=== PATIENT | female | born 1955 | race American Indian/Alaskan Native ===

== ENCOUNTER 2019-11-09 11:58 | Observation (INO) | payer OTHER, MEDICARE, SELFPAY ==
[2019-11-09] VITALS (15 sets, daily range): BP systolic 92–133; BP diastolic 45–78; PULSE 73–110; RESP 14–23; TEMP 36.4–37.7; O2SAT 95–100; BMI 23.2
[2019-11-09 12:32] LABS: RBC Urine None Seen (0-5/HPF)
[2019-11-09] MEDS: PANTOPRAZOLE 40 MG VIAL IV ×2 (12:41→20:27)
[2019-11-09 12:49] LABS: Amorphous Sediment Urine 1+; Bacteria Urine Moderate (10-30); Culture Indicated Urine Specimen Cultured; Mucus Urine 1+ (Negative); Squamous Epithelial Cell Urine 1-5 /HPF (0-5/HPF); WBC Urine 5-10/HPF (0-5/HPF)
[2019-11-09 13:00] LABS: Add Manual Diff / Slide Review NO; Basophils Absolute Auto 100 /uL (0-100); Basophils Percent Auto 0.9 % (0-2); Eosinophils Absolute Auto 0 /uL (0-450); Eosinophils Percent Auto 0.9 % (2-4); Hematocrit 28.5 % (36-46); Hemoglobin 9.9 g/dL (12.0-16.0); Lymphocytes Absolute Auto 1800 /uL (1100-4500); Lymphocytes Percent Auto 32.5 % (25-40); Mean Corpuscular HGB Conc 34.9 % (30-36); Mean Corpuscular Hemoglobin 29.8 PG (26-34); Mean Corpuscular Volume 85.3 fL (80-100); Monocytes Absolute Auto 400 /uL (0-900); Monocytes Percent Auto 6.8 % (3-14); Neutrophils Absolute Auto 3200 /uL (1500-7000); Neutrophils Percent Auto 58.9 % (50-75); Platelet Count 254 X10^3/uL (150-400); Red Blood Cell Count 3.34 X10^6/uL (4.0-5.2); Red Cell Distribution Width 12.9 % (11.6-14.8); White Blood Cell Count 5.4 X10^3/uL (4.5-11.0)
[2019-11-09 13:01] LABS: Prothrombin Time 11.1 SECONDS (10.1-12.7)
[2019-11-09 13:03] LABS: PTT Partial Thromboplastin Tim 33 SECONDS (26.4-36.2)
[2019-11-09 13:08] LABS: Alanine Aminotransferase 23 IU/L (<35); Albumin Globulin Ratio 1.3 (1.0-2.8); Alkaline Phosphatase 62 U/L (38-126); Aspartate Aminotransferase 28 IU/L (14-36); BUN Creatinine Ratio 17.5 (6-22); Bilirubin Total 0.8 mg/dL (0.2-1.3); Blood Urea Nitrogen 14 mg/dL (7-17); Calcium 8.3 mg/dL (8.4-10.2); Carbon Dioxide 23 mmol/L (22-32); Chloride 110 mmol/L (98-107); Estimated Glomerular Filt Rate > 60.0 mL/min (>60); Globulin 3.1 g/dL (1.7-4.1); Glucose 99 mg/dL (80-110); HEMOLYSIS < 15 (0-50); Lactate (Lactic Acid) 0.9 mmol/L (0.7-2.1); Potassium 3.8 mmol/L (3.4-5.1); Sodium 141 mmol/L (137-145); Total Protein 7.1 g/dL (6.3-8.2)
--- NOTE | 2019-11-09 13:08 | ED.GIBLEED ---
HPI - GI Bleed General Chief complaint: GI Bleed Stated complaint: Blood in stool Time Seen by Provider: 11/09/19 12:05 Source: patient Mode of arrival: Ambulatory Limitations: no limitations History of Present Illness HPI Narrative: Patient is a 64 year old female sent from walk-in clinic for of black tarry stools and concern for GI bleed. She has says that for the last 3 days she has had at least 2 or 3 episodes a day. She had initially 1 or 2 episodes of vomiting black tolerate stuff. She has never had GI bleeding before. She feels little weak but denies any dizziness lightheadedness or abdominal pain. Related Data Home Medications Medication Instructions Recorded Confirmed aspirin 81 mg PO DAILY 11/09/19 11/09/19 Allergies Allergy/AdvReac Type Severity Reaction Status Date / Time codeine Allergy Intermediate Palpitation Verified 11/09/19 12:10 s Sulfa (Sulfonamide Allergy Intermediate Blister Verified 11/09/19 12:10 Antibiotics) Review of Systems Review of Systems ROS Unobtainable: All systems reviewed & are unremarkable except as noted in HPI and below Constitutional Constitutional: Denies chills, Denies fever(s), Denies lethargy and Reports weakness Eyes Eyes: Denies change in vision, Denies eye discharge, Denies irritation and Denies loss of vision ENT Ears, Nose, Mouth, and Throat: Denies change in voice, Denies neck pain and Denies sore throat Cardiovascular Cardiovascular: Denies chest pain, Denies irregular heart rhythm, Denies lightheadedness, Denies palpitations, Denies dyspnea, Denies dyspnea on exertion and Denies orthopnea Respiratory Respiratory: Denies cough, Denies dyspnea, Denies dyspnea on exertion and Denies wheezing Gastrointestinal Gastrointestinal: Reports as per HPI, Denies abdominal pain and Reports change in bowel habits Genitourinary Genitourinary: Denies hematuria, Denies flank pain, Denies urinary incontinence and Denies urinary urgency Musculoskeletal Musculoskeletal: Denies neck pain Integumentary/Breasts Skin/Breast: Denies pruritus, Denies erythema, Denies rash and Denies wounds Neurologic Neurologic: Denies loss of vision and Reports weakness Endocrine Endocrine: Denies palpitations Allergic/Immunologic Allergic/Immunologic: Denies wheezing Patient History Medical History Patient denies medical problems (Acute) Social History Smoking Status: Former smoker Smoking Status: Former smoker alcohol intake frequency: 0-2 drinks per day Substance Use Type: does not use Exam Initial Vital Signs Initial Vital Signs: Vital Signs Temperature 97.5 F L 11/09/19 12:05 Pulse Rate 85 11/09/19 12:05 Respiratory Rate 14 11/09/19 12:05 Blood Pressure 115/54 L 11/09/19 12:05 Pulse Oximetry 98 11/09/19 12:05 GENERAL: An alert well-appearing female HEENT: Head atraumatic,EOMI, pupils reactive CARDIOVASCULAR: Regular rate and rhythm without murmurs, rubs or gallops. RESPIRATORY: Breath sounds equal bilaterally, no wheezes rales or rhonchi. ABDOMEN: Soft, nontender. Normoactive bowel sounds all 4 quadrants. No guarding or rebound. RECTAL: Hemoccult-positive, no hemorrhoids, nontender EXTREMITIES: Normal range of motion, no clubbing or edema. Neurovascularly intact NEUROLOGICAL: Alert and oriented x4.Normal gait and speech. Cranial nerves II through XII grossly intact. SKIN: Warm, dry, no laceration, no petechiae, no rashes or lesions. Course Orders Ordered: ED Orders 11/09/19 12:14 Urine Culture Stat Urine Microscopic Stat 11/09/19 12:47 Complete Blood Count AUTO DIFF Stat Comprehensive Metabolic Panel Stat Lactate (Lactic Acid) Stat Partial Thromboplastin Time Stat Prothrombin Time INR Stat Sodium Chloride (Normal Saline 0.9%) 1,000 mls @ 1,000 mls/hr IV BOLUS ONE Stop: 11/09/19 14:27 Discontinued Medications Pantoprazole Sodium (Protonix) 40 mg IV NOW ONE Stop: 11/09/19 12:26 Last Admin: 11/09/19 12:41 Dose: 40 mg Documented by: ALMA DELIA Consultations Consultation #1: Dr. Arnold updated patient's symptoms test results he request admit to medicine and will likely do his EGD colonoscopy today. Keep NPO. IN ED to see and evaluate patient Time: 13:28 Consultation #2: Dr. Torrez accepts for observation Time: 13:54 Vital Signs Vital signs: Vital Signs - 8 hr 11/09/19 12:05 11/09/19 13:08 Temperature 97.5 F L Pulse Rate 85 82 Respiratory Rate 14 16 Blood Pressure 115/54 L Blood Pressure [Right Arm] 92/60 Pulse Oximetry 98 100 MDM - GI Bleed Lab Data Attestation: I reviewed the patient's lab results. Result diagrams: 11/09/19 12:47 11/09/19 12:47 Labs: Lab Results 11/09/19 11/09/19 11/09/19 Range/Units 12:14 12:47 12:47 WBC 5.4 (4.5-11.0) X10^3/uL RBC 3.34 L (4.0-5.2) X10^6/uL Hgb 9.9 L (12.0-16.0) g/dL Hct 28.5 L (36-46) % MCV 85.3 (80-100) fL MCH 29.8 (26-34) PG MCHC 34.9 (30-36) % RDW 12.9 (11.6-14.8) % Plt Count 254 (150-400) X10^3/uL Neut % (Auto) 58.9 (50-75) % Lymph % (Auto) 32.5 (25-40) % [place] % (Auto) 6.8 (3-14) % Eos % (Auto) 0.9 L (2-4) % Baso % (Auto) 0.9 (0-2) % Neut # (Auto) 3200 (5523-2826) /uL Lymph # (Auto) 1800 (7716-4312) /uL [place] # (Auto) 400 (0-900) /uL Eos # (Auto) 0 (0-450) /uL Baso # (Auto) 100 (0-100) /uL PT 11.1 (10.1-12.7) SECONDS INR 1.0 (0.9-1.3) APTT 33 (26.4-36.2) SECONDS Sodium (137-145) mmol/L Potassium (3.4-5.1) mmol/L Chloride (98-107) mmol/L Carbon Dioxide (22-32) mmol/L BUN (7-17) mg/dL Creatinine (0.52-1.04) mg/dL Estimated GFR (>60) mL/min BUN/Creatinine Ratio (6-22) Glucose (80-110) mg/dL Lactate (0.7-2.1) mmol/L Calcium (8.4-10.2) mg/dL Total Bilirubin (0.2-1.3) mg/dL AST (14-36) IU/L ALT (<35) IU/L Alkaline Phosphatase (38-126) U/L Total Protein (6.3-8.2) g/dL Albumin (3.5-5.0) g/dL Globulin (1.7-4.1) g/dL Albumin/Globulin Ratio (1.0-2.8) Urine RBC None seen (0-5/HPF) Urine WBC 5-10/hpf H (0-5/HPF) Ur Squamous Epith Cells 1-5 /hpf (0-5/HPF) Amorphous Sediment 1+ Urine Bacteria Moderate (10-30) H (None) Urine Mucus 1+ H (Negative) Ur Culture Indicated? Specimen cultured 11/09/19 11/09/19 Range/Units 12:47 12:47 WBC (4.5-11.0) X10^3/uL RBC (4.0-5.2) X10^6/uL Hgb (12.0-16.0) g/dL Hct (36-46) % MCV (80-100) fL MCH (26-34) PG MCHC (30-36) % RDW (11.6-14.8) % Plt Count (150-400) X10^3/uL Neut % (Auto) (50-75) % Lymph % (Auto) (25-40) % [place] % (Auto) (3-14) % Eos % (Auto) (2-4) % Baso % (Auto) (0-2) % Neut # (Auto) (8209-1403) /uL Lymph # (Auto) (2555-7471) /uL [place] # (Auto) (0-900) /uL Eos # (Auto) (0-450) /uL Baso # (Auto) (0-100) /uL PT (10.1-12.7) SECONDS INR (0.9-1.3) APTT (26.4-36.2) SECONDS Sodium 141 (137-145) mmol/L Potassium 3.8 (3.4-5.1) mmol/L Chloride 110 H (98-107) mmol/L Carbon Dioxide 23 (22-32) mmol/L BUN 14 (7-17) mg/dL Creatinine 0.80 (0.52-1.04) mg/dL Estimated GFR > 60.0 (>60) mL/min BUN/Creatinine Ratio 17.5 (6-22) Glucose 99 (80-110) mg/dL Lactate 0.9 (0.7-2.1) mmol/L Calcium 8.3 L (8.4-10.2) mg/dL Total Bilirubin 0.8 (0.2-1.3) mg/dL AST 28 (14-36) IU/L ALT 23 (<35) IU/L Alkaline Phosphatase 62 (38-126) U/L Total Protein 7.1 (6.3-8.2) g/dL Albumin 4.0 (3.5-5.0) g/dL Globulin 3.1 (1.7-4.1) g/dL Albumin/Globulin Ratio 1.3 (1.0-2.8) Urine RBC (0-5/HPF) Urine WBC (0-5/HPF) Ur Squamous Epith Cells (0-5/HPF) Amorphous Sediment Urine Bacteria (None) Urine Mucus (Negative) Ur Culture Indicated? Urine Dip Bedside Urine Glucose Negative Bedside Urine Bilirubin - Negative Bedside Urine Ketone - Negative Urine Specific [place] 1.020 Bedside Urine Occult Blood - Negative Bedside Urine pH 6.0 Bedside Urine Protein - Negative Bedside Urine Urobilinogen - Negative Bedside Urine Nitrite - Negative Bedside Urine Leukocytes + 70 Esterase MDM Narrative Medical decision making narrative: Patient is slightly anemic hemoglobin of 9.9 unclear what her baseline is. There was no stool on rectal exam although history suggests GI bleeding. Initial blood pressure 115/54 which 92/60. She has had no further episodes of acute bleeding in the emergency department. sHe is given Protonix and 1 L of IV fluid. Will be admitted for observation for further evaluation. Discharge Plan Departure Patient Disposition: Admitted as Observation Clinical Impression: Acute GI bleeding
[2019-11-09] MEDS: SODIUM CHLORIDE 0.9% 1,000 ML 1000 ML IV (14:20)
--- NOTE | 2019-11-09 14:31 | P.CONS_ITS ---
History of Present Illness Consult details Date Patient Seen: 11/09/19 Time Patient Seen: 14:00 Chief complaint: Blood in stool Reason for consult: Upper GI bleed Requesting provider: Adriana Cardoso Narrative: The patient is a woman with a 3 day history of black bowel movements and vomiting black material. She has never had this before. She has absolutely no abdominal pain. She has not been me in taking anything like Pepto-Bismol. She is not on any blood thinners normally. She does take aspirin 81 mg a day. It is not heavily use alcohol. Meds Home Medications and Allergies Home Medications Medication Instructions Recorded Confirmed Type aspirin 81 mg PO DAILY 11/09/19 11/09/19 History Allergies Allergy/AdvReac Type Severity Reaction Status Date / Time codeine Allergy Intermediate Palpitation Verified 11/09/19 12:10 s Sulfa (Sulfonamide Allergy Intermediate Blister Verified 11/09/19 12:10 Antibiotics) Review of Systems Review of Systems Narrative: Patient denies visual difficulties double vision no cough cold or asthma no tooth aches trouble swallowing no chest pain or heart problems no abdominal pain nausea last colonoscopy perhaps 5 years ago. No seizures or blackouts. No problems with kidney stones. No anxiety or depression. Exam Vital Signs (past 8 hours): - 11/09/19 12:05 11/09/19 13:08 Temperature 97.5 F L Pulse Rate 85 82 Respiratory Rate 14 16 Blood Pressure 115/54 L Blood Pressure [Right Arm] 92/60 Pulse Oximetry 98 100 Oxygen Delivery Method Room Air Narrative Exam Narrative: Thin cooperative woman in no apparent distress. Her eyes are nonicteric. Pupils equal round reactive to light. Oral mucosa is dry no open lesions. Neck is supple there are no nodes in the neck or supraclavicular areas. Trachea is midline mobile. Thyroid is not enlarged. Lungs are clear to auscultation without rales or rhonchi. Heart regular rate and rhythm without murmur gallop. Lungs percuss equally bilaterally. No bruit in the neck. Abdomen is scaphoid soft nontender without mass. No hernias appreciated. Subcostal scar in the right noted. The patient is alert oriented x3. Speech rate and content are appropriate. Objective Labs Result Diagrams: 11/09/19 12:47 11/09/19 12:47 Labs: Laboratory Results - last 24 hr 11/09/19 11/09/1911/09/20 12:14 12:47 12:47 WBC 5.4 RBC 3.34 L Hgb 9.9 L Hct 28.5 L MCV 85.3 MCH 29.8 MCHC 34.9 RDW 12.9 Plt Count 254 Neut % (Auto) 58.9 Lymph % (Auto) 32.5 [place] % (Auto) 6.8 Eos % (Auto) 0.9 L Baso % (Auto) 0.9 Neut # (Auto) 3200 Lymph # (Auto) 1800 [place] # (Auto) 400 Eos # (Auto) 0 Baso # (Auto) 100 PT 11.1 INR 1.0 APTT 33 Sodium Potassium Chloride Carbon Dioxide BUN Creatinine Estimated GFR BUN/Creatinine Ratio Glucose Lactate Calcium Total Bilirubin AST ALT Alkaline Phosphatase Total Protein Albumin Globulin Albumin/Globulin Ratio Urine RBC None seen Urine WBC 5-10/hpf H Ur Squamous Epith Cells 1-5 /hpf Amorphous Sediment 1+ Urine Bacteria Moderate (10-30) H Urine Mucus 1+ H Ur Culture Indicated? Specimen cultured 11/09/19 11/09/19 12:47 12:47 WBC RBC Hgb Hct MCV MCH MCHC RDW Plt Count Neut % (Auto) Lymph % (Auto) [place] % (Auto) Eos % (Auto) Baso % (Auto) Neut # (Auto) Lymph # (Auto) [place] # (Auto) Eos # (Auto) Baso # (Auto) PT INR APTT Sodium 141 Potassium 3.8 Chloride 110 H Carbon Dioxide 23 BUN 14 Creatinine 0.80 Estimated GFR > 60.0 BUN/Creatinine Ratio 17.5 Glucose 99 Lactate 0.9 Calcium 8.3 L Total Bilirubin 0.8 AST 28 ALT 23 Alkaline Phosphatase 62 Total Protein 7.1 Albumin 4.0 Globulin 3.1 Albumin/Globulin Ratio 1.3 Urine RBC Urine WBC Ur Squamous Epith Cells Amorphous Sediment Urine Bacteria Urine Mucus Ur Culture Indicated? Assessment & Plan Assessment and plan (1) Acute GI bleeding: Current visit: Yes Status: Acute Assessment & Plan narrative: Patient with an upper GI bleed. Anemic with hematocrit of upper 20s. Recommend EGD. She has not had anything to eat or drink today. I've discussed the procedure including risks of bleeding perforation the potential to inject medication apply clips etc. She appears to understand wishes to proceed. Will treat with proton pump inhibitor which is already being given in the ER.
--- NOTE | 2019-11-09 16:37 | PM.PREOP ---
Pre-operative Note Interval Note History & Physical reviewed/Exam performed by Physician: Yes Changes to H&P: No
[2019-11-09] MEDS: SODIUM CHLORIDE 0.9% 1,000 ML 42 ML IV (16:38)
--- NOTE | 2019-11-09 17:01 | PM.OP.ENDO ---
Operative Date/Time/Diagnoses Date of procedure: 11/09/19 Time of procedure: 17:01 Pre-op diagnosis: Upper GI bleed Post-op diagnosis: same (Immediate pre pyloric channel ulcer) Procedure & Clinicians Study performed: EGD Same procedure as scheduled: Yes Indications: Determine cause of it upper GI bleed Surgeon: Anton Arnold Procedure Notes SCOAP/Timeout: Performed Procedure in detail: The patient is placed supine on the operating room table and underwent general endotracheal anesthesia to protect her airway should her stomach be full of blood. Her a bite block was inserted and the scope was advanced through it into the esophagus. The esophagus was normal. GE junction at 30 cm from the incisors. The stomach insufflated well. There were extensive gastric fundic polyps noted but no ulcers in the body or antrum were apparent. I passed through the pyloric channel into the duodenum the duodenum was unremarkable to the 3rd part. The scope was brought back into the stomach. I passed through the pyloric channel slowly and identified an area of granulation tissue and ulceration just before the pyloric channel. There was no visible vessel and no clot. The scope was retroflexed in the body of the stomach and the proximal stomach was remarkable for a hiatal hernia but no ulcerations. The scope was straightened and brought slowly up through the stomach and esophagus. No source of bleeding was found in these areas. The only location of a an abnormality was the ulcers seen in the pre-pyloric area. There was no blood anywhere in the upper tract at the time of this endoscopic exam. The scope was removed and the patient tolerated the procedure well Scope withdrawal time: Not applicable Sedation minutes: 0 (General endotracheal anesthesia to protect the airway) Findings: other findings (Ulcer near the pyloric channel) Specimen(s): none sent Complications: none Post-procedure Recommendations: Other recommendation (E GD in 10-12 weeks to confirm healing) Plan for aftercare: Double-dose proton pump inhibitor. Follow up: weeks (Four weeks in my office) Disposition: PACU
--- NOTE | 2019-11-09 17:09 | SUR.PHASEI ---
Patient coughing on presentation to [facility]. Dry cough with no hemoptysis noted.
[2019-11-09] MEDS: SODIUM CHLORIDE 0.9% 1,000 ML 100 ML IV (17:57)
--- NOTE | 2019-11-09 21:26 | PM.HP.1 ---
History of Present Illness History of Present Illness Date Patient Seen: 11/09/19 Time Patient Seen: 21:26 Chief complaint: Blood in stool Narrative: The patient is a 64-year-old female with PMH of HTN (diet controlled) and osteoporosis who presented to the ED on 11/09/19 out of concern for melena (x2 episodes / day) and hematemesis (x1 episode). Her symptoms started on 11/06/2019. Presenting hemoglobin of 9.9 g/dL. Patient denies associated symptoms of chest pain, palpitations, dizziness, lightheadedness, syncopal events, abdominal pain, nausea, or diarrhea. Denies UTI symptoms or changes with micturition. Patient is known to have anemia while she was . Also 1 year ago for approximately 6 months she has been taking 2400 mg of ibuprofen for orthopedic pain. She reports developing bleeding ocular bleeding in at that time was advised to seize NSAID use indefinitely. No prior known GI bleeds. This afternoon patient was evaluated by general surgery, Dr. Arnold, and underwent an EGD. She was found to have an ulcer near pyloric channel. Currently, doing well post procedure. Patient History Medical History (Updated 11/10/19 @ 06:12 by STEFAN Maldonado) Hypertension (Chronic) Osteoporosis (Chronic) Surgical History History of cholecystectomy (Acute) Family & Social History Family History (Updated 11/10/19 @ 06:13 by STEFAN Maldonado) Mother No known health problems Father No known health problems Social History: household members friend(s),other Prior Living Arrangements House Safety & Behavioral: Feels Safe in Current Yes Environment Been Physically Hurt or No Threatened By a Person Suicidal Ideation Description None Suicide Plan Description No Plan Tobacco & Substance use: Smoking Status Former smoker, remote history, quit > 10 yrs ago, smoked less than 1/2 ppd alcohol intake former alcohol intake frequency 0-2 drinks per day Substance Use Type does not use Meds Home Medications and Allergies Home Medications Medication Instructions Recorded Confirmed Type Bone Density Med 11/09/19 History Some Kind Of Cholesterol Med 11/09/19 History aspirin 81 mg PO DAILY 11/09/19 11/09/19 History Allergies Allergy/AdvReac Type Severity Reaction Status Date / Time codeine Allergy Intermediate Palpitation Verified 11/09/19 12:10 s Sulfa (Sulfonamide Allergy Intermediate Blister Verified 11/09/19 12:10 Antibiotics) Review of Systems Review of Systems ROS Unobtainable: All systems reviewed & are unremarkable except as noted in HPI and below Exam Vital Signs (past 8 hours): - 11/09/19 14:35 11/09/19 15:51 11/09/19 16:00 Temperature 98.2 F 98 F Pulse Rate 75 75 78 Respiratory Rate 14 16 18 Blood Pressure 120/64 118/77 Blood Pressure [Right Arm] 95/57 L Pulse Oximetry 100 100 100 11/09/19 16:30 11/09/19 16:58 11/09/19 17:03 Temperature 99.1 F 98 F Pulse Rate 87 110 H 102 H Respiratory Rate 19 23 23 Blood Pressure 110/45 L 132/78 133/48 L Blood Pressure [Right Arm] Pulse Oximetry 100 95 95 11/09/19 17:08 11/09/19 17:22 11/09/19 17:54 Temperature 98.8 F Pulse Rate 98 H 76 73 Respiratory Rate 18 14 18 Blood Pressure 124/59 L 113/55 L 110/65 Blood Pressure [Right Arm] Pulse Oximetry 96 96 100 11/09/19 18:00 11/09/19 18:54 11/09/19 20:11 Temperature 99.3 F Pulse Rate 89 87 Respiratory Rate 17 16 Blood Pressure 120/59 L 115/59 L Blood Pressure [Right Arm] Pulse Oximetry 99 99 99 Oxygen Delivery Method Room Air Narrative Exam Narrative: Constitutional: NAD Neurologic: AOx3, no focal neurological deficits Head: NC, AT Eyes: PERRL, EOMI, no scleral icterus Ears: external ears normal, no otorrhea Nose: external nose normal, no rhinorrhea or epistaxis Throat: Dry MM, oropharynx w/o exudate Neck: no masses, lymphadenopathy, or JVD Chest / Respiratory: CTAB, unlabored respiratory effort, on room air Heart / CV: S1S2, no murmur Abdomen / GI: round, NT, ND, + BS, no organomegaly : no suprapubic tenderness, no CVA Peripheral / Vascular: warm to touch, DP and PT pulses palpable, no edema Musc: full ROM of upper and lower extremities, adequate muscle tone and bulk Skin: no ecchymosis or suspicious lesions / ulcers Objective Labs Result Diagrams: 11/10/19 04:50 11/10/19 04:50 Labs: Laboratory Results - last 24 hr 11/09/19 11/09/19 11/09/19 12:14 12:47 12:47 WBC 5.4 RBC 3.34 L Hgb 9.9 L Hct 28.5 L MCV 85.3 MCH 29.8 MCHC 34.9 RDW 12.9 Plt Count 254 Neut % (Auto) 58.9 Lymph % (Auto) 32.5 [place] % (Auto) 6.8 Eos % (Auto) 0.9 L Baso % (Auto) 0.9 Neut # (Auto) 3200 Lymph # (Auto) 1800 [place] # (Auto) 400 Eos # (Auto) 0 Baso # (Auto) 100 PT 11.1 INR 1.0 APTT 33 Sodium Potassium Chloride Carbon Dioxide BUN Creatinine Estimated GFR BUN/Creatinine Ratio Glucose Lactate Calcium Total Bilirubin AST ALT Alkaline Phosphatase Total Protein Albumin Globulin Albumin/Globulin Ratio Urine RBC None seen Urine WBC 5-10/hpf H Ur Squamous Epith Cells 1-5 /hpf Amorphous Sediment 1+ Urine Bacteria Moderate (10-30) H Urine Mucus 1+ H Ur Culture Indicated? Specimen cultured 11/09/19 11/09/19 12:47 12:47 WBC RBC Hgb Hct MCV MCH MCHC RDW Plt Count Neut % (Auto) Lymph % (Auto) [place] % (Auto) Eos % (Auto) Baso % (Auto) Neut # (Auto) Lymph # (Auto) [place] # (Auto) Eos # (Auto) Baso # (Auto) PT INR APTT Sodium 141 Potassium 3.8 Chloride 110 H Carbon Dioxide 23 BUN 14 Creatinine 0.80 Estimated GFR > 60.0 BUN/Creatinine Ratio 17.5 Glucose 99 Lactate 0.9 Calcium 8.3 L Total Bilirubin 0.8 AST 28 ALT 23 Alkaline Phosphatase 62 Total Protein 7.1 Albumin 4.0 Globulin 3.1 Albumin/Globulin Ratio 1.3 Urine RBC Urine WBC Ur Squamous Epith Cells Amorphous Sediment Urine Bacteria Urine Mucus Ur Culture Indicated? Assessment & Plan Assessment & Plan narrative: Patient is being admitted under observation status for evaluation of a suspected GI bleed. Upper GI bleed, acute, present on admission, active - General surgery has been consulted and evaluated the patient, Dr. Arnold - S/P EGD - Protonix IV BID - May advance diet to clear liquids overnight and to full diet / heart healthy in am (if no overt GI sx) - IVF overnight - Supportive care: Tylenol and Zofran available as needed - Likely to be discharged on 11/10 Normocytic normochromic anemia, chronicity is not known, present on admission, active - Presenting HGB is 9.9 g/dL, baseline HGB level is not know - Check iron studies in a.m. Hypertension, chronic condition, present on admission, active - BP stable, continue trending - Has been taken off antihypertensive agents in June of 2019 Full code. Patient has a health directive. Son is the designated DPOA. Home medications discussed and reconciled accordingly. VTE prophylaxis with SCDs. Quality VTE Deep Vein Thrombosis/Pulmonary Embolism Present on Admission: No
[2019-11-09] MEDS: ACETAMINOPHEN 325 MG TABLET 650 MG PO (21:41)
[2019-11-10] VITALS (8 sets, daily range): BP systolic 85–125; BP diastolic 40–73; PULSE 70–80; RESP 14–18; TEMP 36.9–37.9; O2SAT 97–99
[2019-11-10] MEDS: SODIUM CHLORIDE 0.9% 500 ML 1000 ML IV (01:03)
--- NOTE | 2019-11-10 01:48 | PC.NURSE ---
Addendum entered by Lona Thomas R.N. 11/10/19 06:24: Slept at intervals. BP still lower this morning at 100/61. Discussed with STEFAN Hurley, as had order to DC IVF at 0600. Noted hct to be 22.5 so verbal order received to continue IVF. Original Note: Patient is alert and oriented. Breath sounds CTA with RA sat of 97%. HRR with telemetry reading of SR w/BBB. BP low at 85/46 on left arm and 87/40 on right arm; [employer] OPER[employer] informed and fluid bolus hung with followup BP of 103/67. Denies SOB, dizziness or lightheadedness. Denies nausea. BT present and abdomen is soft/non tender. Denies dysuria, frequency or urgency with urination. Able to turn self in bed. SBA when up to bathroom for safety. Denies pain. Refused SCD's so reminded to ankle wave when awake and patient verbalizes understanding. Fall risk score is low but bed alarm on for nighttime safety.
[2019-11-10 05:28] LABS: Add Manual Diff / Slide Review NO; Basophils Absolute Auto 0 /uL (0-100); Basophils Percent Auto 0.7 % (0-2); Eosinophils Absolute Auto 100 /uL (0-450); Eosinophils Percent Auto 1.1 % (2-4); Hematocrit 22.5 % (36-46); Hemoglobin 7.8 g/dL (12.0-16.0); Lymphocytes Absolute Auto 1700 /uL (1100-4500); Lymphocytes Percent Auto 35.4 % (25-40); Mean Corpuscular HGB Conc 34.8 % (30-36); Mean Corpuscular Hemoglobin 29.8 PG (26-34); Mean Corpuscular Volume 85.5 fL (80-100); Monocytes Absolute Auto 400 /uL (0-900); Monocytes Percent Auto 8.3 % (3-14); Neutrophils Absolute Auto 2600 /uL (1500-7000); Neutrophils Percent Auto 54.5 % (50-75); Platelet Count 196 X10^3/uL (150-400); Red Blood Cell Count 2.63 X10^6/uL (4.0-5.2); Red Cell Distribution Width 12.5 % (11.6-14.8); White Blood Cell Count 4.8 X10^3/uL (4.5-11.0)
[2019-11-10 05:41] LABS: Blood Urea Nitrogen 8 mg/dL (7-17); Carbon Dioxide 22 mmol/L (22-32); Chloride 114 mmol/L (98-107); Estimated Glomerular Filt Rate > 60.0 mL/min (>60); Glucose 89 mg/dL (80-110); HEMOLYSIS < 15 (0-50); Potassium 3.7 mmol/L (3.4-5.1); Sodium 140 mmol/L (137-145)
[2019-11-10 05:47] LABS: HEMOLYSIS < 15 (0-50); Iron 75 ug/dL (37-170)
[2019-11-10] MEDS: SODIUM CHLORIDE 0.9% 1,000 ML 100 ML IV (05:56)
[2019-11-10 05:58] LABS: Percent Iron Saturation 29 % (15-50); Total Iron Binding Capacity 260 ug/dL (265-497); Transferrin 192 mg/dL (206-381)
[2019-11-10] MEDS: ACETAMINOPHEN 325 MG TABLET 650 MG PO (09:30)
[2019-11-10] MEDS: PANTOPRAZOLE 40 MG VIAL IV (09:30)
[2019-11-10 10:19] LABS: Hematocrit 24.2 % (36-46); Hemoglobin 8.4 g/dL (12.0-16.0)
--- NOTE | 2019-11-10 10:21 | CM.DANOTE ---
DCP: Case received, EMR reviewed and met with patient. Introduced self and role. Was able to meet with patient to obtain baseline health and activity information. DCP assessment completed with information currently available. Patient is a 64 year old female who admitted yesterday afternoon to the care of the hospitalist team. PCP: Dr. Wakefield at [facility]. Payer: confirmed: [employer]. Patient came to the hospital secondary to rectal bleeding. She had noted some dark stools. Her hgb is 9.9. She had an EGD which noted pyloric ulcer. Met with patient in her room. She is alert and oriented. She resides in [place], is independent. She is employed at [employer], and her provider is located on [facility] as well. She lives alone. P: DCP to continue to follow. Patient should be able to go home when she is medically stable. Starr Salazar RN/[employer]
--- NOTE | 2019-11-10 13:08 | P.DS_ITS ---
History of Present Illness History of Present Illness Date Patient Seen: 11/10/19 Time Patient Seen: 13:08 Chief complaint: Blood in stool Narrative: As per STEFAN Maldonado: The patient is a 64-year-old female with PMH of HTN (diet controlled) and osteoporosis who presented to the ED on 11/09/19 out of concern for melena (x2 episodes / day) and hematemesis (x1 episode). Her symptoms started on 11/06/2019. Presenting hemoglobin of 9.9 g/dL. Patient denies associated symptoms of chest pain, palpitations, dizziness, lightheadedness, syncopal events, abdominal pain, nausea, or diarrhea. Denies UTI symptoms or changes with micturition. Patient is known to have anemia while she was . Also 1 year ago for approximately 6 months she has been taking 2400 mg of ibuprofen for orthopedic pain. She reports developing bleeding ocular bleeding in at that time was advised to cease NSAID use indefinitely. No prior known GI bleeds. This afternoon patient was evaluated by general surgery, Dr. Arnold, and underwent an EGD. She was found to have an ulcer near pyloric channel. Currently, doing well post procedure. Discharge Providers Provider Date of admission: 11/09/19 14:00 Discharge Date: 11/10/19 Discharge provider: Chris Dhillon DO Summary Hospital Course Discharge Diagnosis: 1. Upper GI bleed, acute, present on admission, active 2. Normocytic normochromic anemia, chronicity is not known, present on admission, active 3. Hypertension, chronic condition Hospital Course: 1. Upper GI bleed, acute, present on admission, resolved. - General surgery was consulted and evaluated the patient, Dr. Arnold - She underwent EGD which showed a pyloric ulcer. - patient was continued on protonix IV BID. - Her diet was advanced after EGD and she tolerated her diet well. Her Hg was stable and she was discharged home following EGD. She was discharged with 4 weeks of PPI BID therapy. She will follow up with surgery in approximately 4 weeks, and she will need repeat endoscopy in about 12 weeks. 2. Normocytic normochromic anemia, chronicity is not known, but likely acute possible on chronic, present on admission, active - there was a component of acute blood loss anemia as well. - Presenting HGB is 9.9 g/dL, baseline HGB level is not known. Downtrended to 7.8 then increased on repeat to 8.4. She was discharged home on PPI as noted above. - repeat check of CBC is recommended as an outpatient. She may need additional anemia evaluation once treated for her ulcer if anemia does not improve. 3. Hypertension, chronic condition, present on admission, not active. - BP stable, continue trending - Has been taken off antihypertensive agents in June of 2019 Exam Vital Signs (past 8 hours): - 11/10/19 05:40 11/10/19 07:24 11/10/19 11:13 Temperature 98.8 F 100.2 F H 98.5 F Pulse Rate 76 77 70 Respiratory Rate 18 16 14 Blood Pressure 100/61 108/61 125/73 Pulse Oximetry 98 99 98 11/10/19 11:31 Temperature Pulse Rate Respiratory Rate Blood Pressure Pulse Oximetry 98 Oxygen Delivery Method Room Air Oxygen Flow Rate 0 Narrative Exam Narrative: GENERAL APPEARANCE: Well developed, well nourished, in no acute distress. SKIN: Inspection of the skin reveals no rashes, ulcerations or petechiae. HEENT: The sclerae were anicteric and conjunctivae were pink and moist. Extraocular movements were intact and pupils were equal, round with normal accommodation. External inspection of the ears and nose showed no scars, lesions, or masses. Lips, teeth, and gums showed normal mucosa. The oral mucosa, hard and soft palate, tongue and posterior pharynx were unremarkable. NECK: Supple and symmetric. There was no thyroid enlargement, and no tenderness, or masses were felt. CHEST: Normal AP diameter and normal contour without any kyphoscoliosis. LUNGS: Auscultation of the lungs revealed no wheezes, rhonchi, or rales. CARDIOVASCULAR: There was a regular rate and rhythm without any murmurs, gallops, rubs. Peripheral pulses were 2+ and symmetric. ABDOMEN: Soft and nontender with normal bowel sounds. No ascites was noted. MUSCULOSKELETAL: There was no tenderness or effusions noted. Muscle strength and tone were normal. EXTREMITIES: No cyanosis, clubbing or edema. NEUROLOGIC: Alert and oriented x 3. Normal affect. Gait was normal. Strength is +5/5 in the Upper Extremities and Lower Extremities Bilaterally. Sensation to touch was normal. Objective Labs Result Diagrams: 11/10/19 10:08 11/10/19 04:50 Labs: Laboratory Results - last 24 hr 11/09/19 11/09/19 11/10/19 12:47 12:47 04:50 WBC 4.8 RBC 2.63 L Hgb 7.8 L Hct 22.5 L MCV 85.5 MCH 29.8 MCHC 34.8 RDW 12.5 Plt Count 196 Neut % (Auto) 54.5 Lymph % (Auto) 35.4 Beckham % (Auto) 8.3 Eos % (Auto) 1.1 L Baso % (Auto) 0.7 Neut # (Auto) 2600 Lymph # (Auto) 1700 Beckham # (Auto) 400 Eos # (Auto) 100 Baso # (Auto) 0 Sodium 141 Potassium 3.8 Chloride 110 H Carbon Dioxide 23 BUN 14 Creatinine 0.80 Estimated GFR > 60.0 BUN/Creatinine Ratio 17.5 Glucose 99 Lactate 0.9 Calcium 8.3 L Iron TIBC % Saturation Transferrin Total Bilirubin 0.8 AST 28 ALT 23 Alkaline Phosphatase 62 Total Protein 7.1 Albumin 4.0 Globulin 3.1 Albumin/Globulin Ratio 1.3 11/10/19 11/10/19 11/10/19 04:50 04:50 10:08 WBC RBC Hgb 8.4 L Hct 24.2 L MCV MCH MCHC RDW Plt Count Neut % (Auto) Lymph % (Auto) Beckham % (Auto) Eos % (Auto) Baso % (Auto) Neut # (Auto) Lymph # (Auto) Beckham # (Auto) Eos # (Auto) Baso # (Auto) Sodium 140 Potassium 3.7 Chloride 114 H Carbon Dioxide 22 BUN 8 Creatinine 0.80 Estimated GFR > 60.0 BUN/Creatinine Ratio 10.0 Glucose 89 Lactate Calcium 7.0 L Iron 75 TIBC 260 L % Saturation 29 Transferrin 192 L Total Bilirubin AST ALT Alkaline Phosphatase Total Protein Albumin Globulin Albumin/Globulin Ratio Discharge Plan Discharge Plan Patient Disposition: Home Discharge comment: You were admitted to the hospital with the bleed from your stomach. You had an endoscopy which showed an ulcer in your stomach. You should continue to take omeprazole until your follow-up with the surgeons in approximately 4 weeks. You will need a repeat endoscopy in about 12 weeks to confirm healing. You should continue to not take any ibuprofen or NSAIDs. You should also stop taking aspirin. Discharge orders & Medications Prescriptions: New omeprazole 40 mg capsule,delayed release(DR/EC) 40 mg PO BID 35 Days Qty: 70 RF: 0 Continued Bone Density Med RF: 0 Some Kind Of Cholesterol Med RF: 0 Discontinued aspirin 81 mg Tablet,Chewable 81 mg PO DAILY RF: 0 Follow up/Referrals: Anton Arnold MD [Physician] - 1 Month (S/p EGD with pyloric ulcer) Discharge Health Status Health Concerns: Pyloric ulcer GI bleeding Diet/Activity/Treatments Diet: Diet as Tolerated Activity: As tolerated Visit Report/Discharge Packet Instructions: DI for Gastric Ulcer, Omeprazole, DI for Stomach Polyps Visit Report Forms: Patient Portal/API, Stroke Signs & Symptoms Discharge Data Attending Provider: Joan Torrez Admit Date/Time: 11/09/19 14:00 Discharges patient from system. Discharge Date/Time: 11/10/19 16:07 Quality VTE Deep Vein Thrombosis/Pulmonary Embolism Present on Admission: No
--- NOTE | 2019-11-10 15:34 | PC.NURSE ---
Day shift pt had large dark black,green tarry stool. Pt states it is improving from previous stools. BP stable. Tolerated diet. ok for d/c.
[2019-11-10] MEDS: PANTOPRAZOLE 40 MG TABLET PO (15:45)
== END 2019-11-10 16:07 | disposition home or self-care (01) ==
LOC: ED 13:59 → AC 14:01
PROVIDERS: Nurse Practitioner Gerontology; Specialist; Admitting Provider Internal Medicine; Emergency Provider Emergency Medicine; Visit Provider Internal Medicine
PROC: 0DJ08ZZ Inspection of Upper Intestinal Tract, Via Natural or Artificial Opening Endoscopic (ICD-10-PCS; CPT 43235; principal; 2019-11-09 16:00)
DX: K92.1 Melena (principal); K92.0 Hematemesis; I10 Essential (primary) hypertension; M81.0 Age-related osteoporosis without current pathological fracture; K44.9 Diaphragmatic hernia without obstruction or gangrene; K25.9 Gastric ulcer, unspecified as acute or chronic, without hemorrhage or perforation
CPT/HCPCS: 43235; 36415; 80048; 80053; 81003; 81015; 83540; 83550; 83605; 85014; 85018; 85025; 85610; 85730; 87086; 96361; 96374; 96376; 99224; 99284; G0378; C9113; J0330; J2250; J2704; J3010

== ENCOUNTER 2020-05-10 06:37 | Day surgery (SDC) | payer OTHER, MEDICARE, SELFPAY ==
[2019-11-09 15:24] VITALS: BMI 23.2
--- NOTE | 2020-05-10 | PATH_ITS ---
[facility] Accession Number: [id number] . 01 Material submitted: . PART A: gastrointestinal site - GASTRIC POLYP PART B: gastrointestinal site - BIOPSIES NEAR GASTRIC ULCERS . 01 Diagnosis: A. Gastric Polyp, Biopsy: Fundic gland polyp. No evidence of Helicobacter organisms on H/E stain. Negative for intestinal metaplasia. Negative for dysplasia and malignancy. . B. Stomach, Near Ulcers, Biopsies: Gastric antral mucosa with mild chronic inflammation and features of reactive gastropathy. Negative for Helicobacter organisms by immunohistochemistry. Negative for intestinal metaplasia. Negative for dysplasia or malignancy. [facility] 05/14/2020 1416 Local . 01 Electronically signed: . Jose M Harper MD, PhD, Pathologist NPI- [id number] . 01 Gross description: . Part A: GASTRIC POLYP: Received in formalin are multiple fragment(s) of vivar, soft tissue measuring 0.1 x 0.1 x 0.1 cm to 0.3 x 0.2 x 0.2 cm submitted entirely in 1 cassette(s) Part B: BIOPSIES NEAR GASTRIC ULCERS: Received in formalin are 3 fragment(s) of vivar, soft tissue measuring 0.1 x 0.1 x 0.1 cm to 0.2 x 0.2 x 0.1 cm submitted entirely in 1 cassette(s) /[facility] 05/11/2020 0157 Local . 01 Microscopic: . B. An immunohistochemical stain was performed to evaluate for Helicobacter organisms and is negative. The control stain showed appropriate reactivity. . * This test was developed and its performance characteristics determined by [facility]. It has not been cleared or approved by the U.S. Food and Drug Administration. The FDA has determined that such clearance or approval is not necessary. This test is used for clinical purposes. It should not be regarded as investigational or for research. . 01 Pathologist provided ICD-10: K25.9, K31.7 . 01 CPT . 937544, 618090, Q50530 Performed at: [address] [facility], [place], [place] [id number] MD Rogelio Ferreira MD Phone: [phone]
[2020-05-10 07:05] VITALS: BP 126/71; PULSE 71; RESP 16; TEMP 36.2; O2SAT 95; BMI 23.8
--- NOTE | 2020-05-10 07:47 | PM.HP.1 ---
History of Present Illness History of Present Illness Date Patient Seen: 05/10/20 Time Patient Seen: 07:44 Chief complaint: [id number] Narrative: Patient is a woman here for an EGD as a follow-up to ensure that her ulcers treated earlier this year have healed Patient History Medical History Hypertension (Chronic) Osteoporosis (Chronic) Surgical History History of cholecystectomy (Acute) Family & Social History Family History Mother No known health problems Father No known health problems Social History: household members none Tobacco & Substance use: Smoking Status Former smoker alcohol intake current alcohol intake frequency holiday/special occasion Substance Use Type does not use Meds Home Medications and Allergies Home Medications Medication Instructions Recorded Confirmed Type omeprazole 40 mg PO DAILY 05/10/20 05/10/20 History Allergies Allergy/AdvReac Type Severity Reaction Status Date / Time codeine Allergy Intermediate Palpitation Verified 05/10/20 06:59 s Sulfa (Sulfonamide Allergy Intermediate Blister Verified 05/10/20 06:59 Antibiotics) Review of Systems Review of Systems ROS: Yes All systems reviewed with the patient and are negative except as otherwise documented Exam Vital Signs (past 8 hours): - 05/10/20 07:05 Temperature 97.1 F L Pulse Rate 71 Respiratory Rate 16 Blood Pressure 126/71 Pulse Oximetry 95 Oxygen Delivery Method Room Air Narrative Exam Narrative: Pleasant cooperative patient no apparent distress. Lungs are clear to auscultation. No rales or rhonchi. Heart regular rate and rhythm no murmur gallop. Abdomen is soft nontender without mass. No obvious hernias. Patient is alert and oriented x3. Assessment & Plan Assessment & Plan narrative: The patient for a screening colonoscopy. I have discussed the procedure with them. Risks of bleeding, perforation which would necessitate major operationlesions, were discussed. All questions were answered. They wished to proceed.
--- NOTE | 2020-05-10 07:49 | PM.PREOP ---
Pre-operative Note COVID-19 COVID-19 status: Negative Result date/Date tested (Pos, Neg/Pending): 05/07/20 Interval Note History & Physical reviewed/Exam performed by Physician: Yes Changes to H&P: No ASA Class (for procedural sedation): I
--- NOTE | 2020-05-10 08:11 | PM.OP.ENDO ---
Operative Date/Time/Diagnoses Date of procedure: 05/10/20 Time of procedure: 08:11 Pre-op diagnosis: History of gastric ulcer Post-op diagnosis: same (Ulcer has not completely healed) Procedure & Clinicians Study performed: EGD with cold biopsy Same procedure as scheduled: Yes Indications: Determine healing of ulcer Surgeon: Anton Arnold Procedure Notes SCOAP/Timeout: Performed Procedure in detail: The patient had topical anesthetic applied to oropharynx. She was placed in left lateral decubitus position and underwent IV sedation directed by the surgeon consisting of fentanyl and Versed. A bite block was inserted and the scope was advanced through it into the esophagus. The esophagus was unremarkable. GE junction was noted at 36 cm from the incisors. There was a small hiatal hernia.. The stomach insufflated well. There were no lesions seen in the body or at the incisura. In the gastric antrum there was still evidence of very superficial ulcers and inflammation around them. The pyloric channel was narrowed but patent. The duodenum was unremarkable to the 4th part. The scope was brought back into the stomach and retroflexed. The proximal stomach was remarkable for gastric polyps that appeared to be gastric fundic polyps. Biopsies were taken of several of these.. The scope was straightened and biopsies were then taken at the area around the ulcerations. The scope was then Brought out through the esophagus again. No lesions were seen. The scope was removed and the patient tolerated the procedure well. Scope withdrawal time: Not applicable Sedation minutes: 12 Findings: gastric ulcer (Superficial in the antrum), hiatal hernia (Small) and polyp (Gastric fundic polyps) Specimen(s): other (Polyp biopsies and biopsies of the ulcer area) Complications: none Post-procedure Plan for aftercare: Will contact regarding follow-up Disposition: PACU
[2020-05-10] MEDS: LIDOCAINE 4% SOLN 50 ML 20 ML TOP (08:13)
[2020-05-10 08:14] VITALS: BP 113/70; PULSE 79; RESP 10; O2SAT 94
[2020-05-10] MEDS: fentaNYL 250 MCG/5 ML INJ IV (08:14)
[2020-05-10] MEDS: MIDAZOLAM 5 MG/5 ML VIAL IV (08:14)
[2020-05-10 08:19] VITALS: PULSE 81; RESP 12; TEMP 36.6; O2SAT 94
[2020-05-10 08:24] VITALS: BP 115/74; PULSE 84; RESP 16; TEMP 36.7; O2SAT 97
[2020-05-10 08:33] VITALS: BP 119/72; PULSE 79; RESP 15; TEMP 36.7; O2SAT 97
[2020-05-10 09:03] VITALS: BP 134/75; PULSE 67; RESP 18; TEMP 36.2; O2SAT 98
== END 2020-05-10 09:05 | disposition home or self-care (01) ==
PROVIDERS: PCP Physician Assistant; Referring Provider Physician Assistant; Visit Provider Specialist
PROC: 0DJ08ZZ Inspection of Upper Intestinal Tract, Via Natural or Artificial Opening Endoscopic (ICD-10-PCS; CPT 43235; principal; 2020-05-10 07:45)
DX: K25.9 Gastric ulcer, unspecified as acute or chronic, without hemorrhage or perforation (principal); I10 Essential (primary) hypertension; K44.9 Diaphragmatic hernia without obstruction or gangrene; K29.50 Unspecified chronic gastritis without bleeding; K31.7 Polyp of stomach and duodenum
CPT/HCPCS: 43239; 99152; J2250; J3010

== ENCOUNTER → 2020-11-21 10:13 | Outpatient (CLI) | payer OTHER, MEDICARE, SELFPAY ==
[2019-11-09 15:24] VITALS: BMI 23.2
[2020-11-21 11:19] LABS: COVID19 -Nasal RAPID Negative (Negative)
== END ==
PROVIDERS: PCP Physician Assistant; Visit Provider Specialist
DX: Z20.822 Contact with and (suspected) exposure to COVID-19 (principal)
CPT/HCPCS: 87635; C9803

== ENCOUNTER 2020-11-22 06:36 | Day surgery (SDC) | payer OTHER, MEDICARE, SELFPAY ==
[2019-11-09 15:24] VITALS: BMI 23.2
--- NOTE | 2020-11-22 | PATH_ITS ---
[facility] Accession Number: [id number] . 01 Material submitted: . PART A: stomach - GASTRIC ANTRUM PART B: esophagus, E-G Junction - GE JUNCTION . 02 Diagnosis: A. Stomach, Antrum, Biopsy: Antral mucosa with mild chronic gastritis. No evidence of Helicobacter on H/E stain. Negative for intestinal metaplasia. Negative for dysplasia and malignancy. . B. Gastroesophageal Junction, Biopsy: Squamocolumnar junctional mucosa with no diagnostic abnormality. Negative for intestinal metaplasia. Negative for dysplasia and malignancy. . . [facility] 11/27/2020 1522 Local . 02 Comment: An immunohistochemical stain for Helicobacter will be performed and the results reported as an addendum. . 02 Electronically signed: . Miladis Martin MD, Pathologist NPI- [id number] . 01 Gross description: . Part A: GASTRIC ANTRUM: Received in formalin are 4 fragment(s) of vivar, soft tissue measuring 0.7 x 0.3 x 0.2 cm to 0.3 x 0.2 x 0.1 cm submitted entirely in 1 cassette(s) Part B: GE JUNCTION: Received in formalin are 3 fragment(s) of vivar, soft tissue measuring 0.3 x 0.3 x 0.1 cm to 0.1 x 0.1 x 0.1 cm submitted entirely in 1 cassette(s) /QBJ 11/24/2020 0926 Local . 02 Pathologist provided ICD-10: Z87.19 . 02 CPT . 466127, 451840 Performed at: 01 [facility] [address] [place] [address] [address] [facility], [place], [place] [id number] MD Rogelio Ferreira MD Phone: [phone] Performed at: 02 [facility] [place] [address] [place] [id number] MD Miladis Martin MD Phone: [phone]
[2020-11-22 07:18] VITALS: BP 119/72; PULSE 64; RESP 13; TEMP 36.2; O2SAT 97; BMI 23.8
[2020-11-22] MEDS: LACTATED RINGERS 1,000 ML 200 ML IV (07:34)
--- NOTE | 2020-11-22 07:41 | PM.HP.1 ---
History of Present Illness History of Present Illness Date Patient Seen: 11/22/20 Time Patient Seen: 07:38 Chief complaint: SDC Narrative: PATIENT IS A WOMAN WHO HAS A GASTRIC ULCER POST TREATMENT. HERE TO CONFIRM HEALING. SHE FEELS WELL. Patient History Medical History Hypertension Osteoporosis Surgical History History of cholecystectomy Family & Social History Family History Mother No known health problems Father No known health problems Social History: household members none Tobacco & Substance use: Smoking Status Former smoker alcohol intake current alcohol intake frequency holiday/special occasion Substance Use Type does not use Meds Home Medications and Allergies Home Medications Medication Instructions Recorded Confirmed Type omeprazole 40 mg PO DAILY 05/10/20 11/22/20 History Allergies Allergy/AdvReac Type Severity Reaction Status Date / Time codeine Allergy Intermediate Palpitation Verified 11/22/20 07:32 s Sulfa (Sulfonamide Allergy Intermediate Blister Verified 11/22/20 07:32 Antibiotics) Review of Systems Review of Systems ROS: Yes All systems reviewed with the patient and are negative except as otherwise documented Exam Vital Signs (past 8 hours): - 11/22/20 07:18 Temperature 97.1 F L Pulse Rate 64 Respiratory Rate 13 Blood Pressure 119/72 Pulse Oximetry 97 Oxygen Delivery Method Room Air Narrative Exam Narrative: Pleasant cooperative patient no apparent distress. Lungs are clear to auscultation. No rales or rhonchi. Heart regular rate and rhythm no murmur gallop. Abdomen is soft nontender without mass. No obvious hernias. Patient is alert and oriented x3. Assessment & Plan Assessment & Plan narrative: For an EGD. Discussed the procedure including risks of bleeding perforation. She appears to understand wishes to proceed
--- NOTE | 2020-11-22 07:42 | PM.PREOP ---
Pre-operative Note COVID-19 COVID-19 status: Negative Result date/Date tested (Pos, Neg/Pending): 11/21/20 Interval Note History & Physical reviewed/Exam performed by Physician: Yes Changes to H&P: No ASA Class (for procedural sedation): I
[2020-11-22] MEDS: LIDOCAINE 4% SOLN 50 ML 20 ML TOP (07:50)
[2020-11-22] MEDS: fentaNYL 250 MCG/5 ML INJ IV (07:50)
--- NOTE | 2020-11-22 08:10 | PM.OP.ENDO ---
Operative Date/Time/Diagnoses Date of procedure: 11/22/20 Time of procedure: 08:10 Pre-op diagnosis: History of gastric ulcer Post-op diagnosis: same Procedure & Clinicians Study performed: EGD with cold biopsy Same procedure as scheduled: Yes Indications: Determine if ulcer is healed Surgeon: Anton Arnold Procedure Notes SCOAP/Timeout: Performed Procedure in detail: The patient had topical anesthetic applied to oropharynx. She was placed in left lateral decubitus position and underwent IV sedation directed by the surgeon consisting of fentanyl and Versed. A bite block was inserted and the scope was advanced through it into the esophagus. The esophagus was unremarkable. GE junction was noted at 35 cm from the incisors. The stomach insufflated well. There were no lesions seen in the body, antrum or at the incisura. The pyloric channel was edematous however and the cause is not clear visually.. The duodenum was unremarkable to the 3rd part. The scope was brought back into the stomach and retroflexed. The proximal stomach normal in appearance except for 1 very discrete area of redness.. The scope was straightened and brought out through the esophagus again. I noted a linear inflammation and inflammation just below the GE junction. I biopsied these regions. No lesions were seen. The scope was removed and the patient tolerated the procedure well. Scope withdrawal time: Not applicable Sedation minutes: 14 Findings: other findings (Ulcers healed) Specimen(s): other (Gastric antrum biopsies and GE junction biopsies) Complications: none Post-procedure Recommendations: Continue medication(s) (Omeprazole) Follow up: as needed Disposition: PACU
[2020-11-22] MEDS: MIDAZOLAM 5 MG/5 ML VIAL IV (08:12)
[2020-11-22 08:14] VITALS: BP 150/67; PULSE 67; RESP 12; TEMP 36.5; O2SAT 95
[2020-11-22 08:19] VITALS: BP 129/73; PULSE 67; RESP 17; O2SAT 99
[2020-11-22 08:24] VITALS: BP 138/77; PULSE 65; RESP 12; TEMP 36.6; O2SAT 97
[2020-11-22 08:29] VITALS: BP 124/71; PULSE 62; RESP 11; TEMP 36.9; O2SAT 97
--- NOTE | 2020-11-22 08:37 | SUR.PHASEI ---
Assumed care from kiara Ervin post EGD.
[2020-11-22 08:45] VITALS: BP 122/75; PULSE 56; RESP 16; TEMP 36.7; O2SAT 98
== END 2020-11-22 09:00 | disposition home or self-care (01) ==
PROVIDERS: PCP Physician Assistant; Referring Provider Specialist; Visit Provider Specialist
PROC: 0DJ08ZZ Inspection of Upper Intestinal Tract, Via Natural or Artificial Opening Endoscopic (ICD-10-PCS; CPT 43235; principal; 2020-11-22 07:45)
DX: K29.50 Unspecified chronic gastritis without bleeding (principal); Z87.11 Personal history of peptic ulcer disease; I10 Essential (primary) hypertension
CPT/HCPCS: 43239; 99152; J2250; J3010

== ENCOUNTER → 2021-02-03 16:43 | Outpatient (CLI) | payer OTHER, MEDICARE, SELFPAY ==
[2019-11-09 15:24] VITALS: BMI 23.2
[2021-02-03 17:10] LABS: COVID19 -Nasal RAPID Negative (Negative)
== END ==
PROVIDERS: PCP Physician Assistant; Visit Provider Physician Assistant
DX: Z20.822 Contact with and (suspected) exposure to COVID-19 (principal)
CPT/HCPCS: 87635; C9803

== ENCOUNTER 2021-02-05 06:26 | Day surgery (SDC) | payer OTHER, MEDICARE, SELFPAY ==
[2019-11-09 15:24] VITALS: BMI 23.2
[2021-02-05] MEDS: PROPARACAINE 0.5% OPHTH SOL 2 DROPS EYE-OP (07:20)
[2021-02-05] MEDS: CATARACT EYE COMPOUND (10 DROPS/SYRINGE) 3 DROPS EYE-OP (07:21)
[2021-02-05 07:28] VITALS: BP 141/90; PULSE 73; RESP 18; TEMP 36.5; O2SAT 97; BMI 23.6
--- NOTE | 2021-02-05 08:33 | PM.PREOP ---
Pre-operative Note Interval Note History & Physical reviewed/Exam performed by Physician: Yes Changes to H&P: No
--- NOTE | 2021-02-05 08:34 | PM.OP.1 ---
Operative Date/Time/Diagnoses Pre-op diagnosis: Nuclear cataract right eye Procedure & Clinicians Procedure: Cataract Surgery Same procedure as scheduled: Yes Surgeon: Jayson Rabago Anesthesia Type: MAC +/- and Sedation Operative Notes Procedure in detail: Patient brought to the operating suite. Tetracaine drops placed in the right eye. Patient was prepped and draped in sterile manner. Wire lid speculum was placed in the eye. Betadine drops were placed on the eye. This was irrigated. Lidocaine jelly was placed on the eye. A paracentesis port was created with a side-port blade. 0.1 mL 1% preservative free lidocaine was injected into the anterior chamber. The anterior chamber was deepened with viscoelastic. 2.6 mm keratome was used to create a temporal clear corneal incision. Cystotome and Utrata forceps were used to create continuous tear capsulorrhexis. Balanced salt solution was used to hydro dissect the nucleus. The phacoemulsification handpiece was inserted and the nucleus was removed using the stop and chop technique. The irrigation aspiration handpiece was inserted and the remaining cortex was removed. Anterior chamber was deepened with viscoelastic. An Means DIB00 intraocular lens with a power of 18.0 was injected into the capsular bag. Irrigation aspiration handpiece was inserted and the remaining viscoelastic was removed. Incision was hydrated with balanced salt solution and found to be leak free with pressure with Weck-Kelly sponges. 0.1 mL Vigamox injected anterior chamber. 0.3 mL Kenalog 10 mg was injected subconjunctivally. Lid speculum was removed. The patient left the operating room in excellent condition. Complications: none Post-operative Condition: stable Disposition: same day surgery
[2021-02-05] MEDS: MOXIFLOXACIN INJ 4 MG/0.8 ML VIAL 0.5 MG EYE-OP (08:53)
[2021-02-05] MEDS: LIDOCAINE 2% (GLYDO) 6 ML GEL TOP (08:53)
[2021-02-05] MEDS: TRIAMCINOLONE 50 MG/5 ML VIAL INJ (08:53)
[2021-02-05] MEDS: PHENYLEPHRINE/LIDOCAINE VIAL (OR) 0.2 ML EYE-OP (08:53)
[2021-02-05] MEDS: TETRACAINE 0.5% OPHTH DROPS 4 ML 2 DROPS EYE-OP (08:54)
[2021-02-05] MEDS: BALANCED SALT IRRIG SOLN NO.2 500 ML, EPINEPHrine 1 MG IRR (08:54)
[2021-02-05 09:05] VITALS: BP 147/90; PULSE 71; RESP 16; TEMP 36.6; O2SAT 99
[2021-02-05 09:18] VITALS: BP 154/84; PULSE 68; RESP 16; O2SAT 99
--- NOTE | 2021-02-05 09:35 | SUR.PHASEII ---
pt was given discharge instructions. Denies any pain or complaints. Pt taken in wheelchair to her friend outside the ER who is waiting to take her home.
== END 2021-02-05 09:25 | disposition home or self-care (01) ==
LOC: OR 06:34
PROVIDERS: PCP Physician Assistant; Referring Provider Physician Assistant; Visit Provider Ophthalmology
PROC: (CPT 66984; principal; 2021-02-05 08:45)
DX: H25.11 Age-related nuclear cataract, right eye (principal)
CPT/HCPCS: 66984; J0171; J2250; J3301

== ENCOUNTER → 2021-02-18 14:11 | Outpatient (CLI) | payer OTHER, MEDICARE, SELFPAY ==
[2019-11-09 15:24] VITALS: BMI 23.2
[2021-02-18 17:18] LABS: COVID19 -Nasal RAPID Negative (Negative)
== END ==
PROVIDERS: PCP Physician Assistant; Visit Provider Student in an Organized Health Care Education/Training Program
DX: Z01.812 Encounter for preprocedural laboratory examination (principal); Z20.822 Contact with and (suspected) exposure to COVID-19
CPT/HCPCS: 87635; C9803

== ENCOUNTER 2021-02-19 11:51 | Day surgery (SDC) | payer OTHER, MEDICARE, SELFPAY ==
[2019-11-09 15:24] VITALS: BMI 23.2
[2021-02-19 12:30] VITALS: BP 137/88; PULSE 86; RESP 16; TEMP 36.5; O2SAT 97; BMI 23.6
[2021-02-19] MEDS: PROPARACAINE 0.5% OPHTH SOL 2 DROPS EYE-OP (12:30)
[2021-02-19] MEDS: CATARACT EYE COMPOUND (10 DROPS/SYRINGE) 3 DROPS EYE-OP (12:35)
--- NOTE | 2021-02-19 12:49 | P.OP_ITS ---
Operative Date/Time/Diagnoses Pre-op diagnosis: Nuclear Cataract Left eye Post-op diagnosis: same Procedure & Clinicians Same procedure as scheduled: Yes Surgeon: Jayson Rabago Anesthesia Type: MAC +/- and Sedation Operative Notes Procedure in detail: Patient brought to the operating suite. Tetracaine drops placed in the left eye. Patient was prepped and draped in sterile manner. Wire lid speculum was placed in the eye. Betadine drops were placed on the eye. This was irrigated. Lidocaine jelly was placed on the eye. A paracentesis port was created with a side-port blade. 0.1 mL 1% preservative free lidocaine was injected into the anterior chamber. The anterior chamber was deepened with viscoelastic. 2.6 mm keratome was used to create a temporal clear corneal incision. Cystotome and Utrata forceps were used to create continuous tear capsulorrhexis. Balanced salt solution was used to hydro dissect the nucleus. The phacoemulsification handpiece was inserted and the nucleus was removed using the stop and chop technique. The irrigation aspiration handpiece was inserted and the remaining cortex was removed. Anterior chamber was deepened with viscoe lastic. An Means ZCB00 intraocular lens with a power of 17.0 was injected into the capsular bag. Irrigation aspiration handpiece was inserted and the remaining viscoelastic was removed. Incision was hydrated with balanced salt solution and found to be leak free with pressure with Weck-Kelly sponges. 0.1 mL Vigamox injected anterior chamber. 0.3 mL Kenalog 10 mg was injected subconjunctivally. Lid speculum was removed. The patient left the operating room in excellent condition. Complications: none Post-operative Condition: stable Disposition: same day surgery
--- NOTE | 2021-02-19 12:49 | PM.PREOP ---
Pre-operative Note Interval Note History & Physical reviewed/Exam performed by Physician: Yes Changes to H&P: No
[2021-02-19] MEDS: PHENYLEPHRINE/LIDOCAINE VIAL (OR) 0.2 ML EYE-OP (13:05)
[2021-02-19] MEDS: LIDOCAINE 2% (GLYDO) 6 ML GEL TOP (13:05)
[2021-02-19] MEDS: MOXIFLOXACIN INJ 4 MG/0.8 ML VIAL 0.5 MG EYE-OP (13:05)
[2021-02-19] MEDS: BALANCED SALT IRRIG SOLN NO.2 500 ML, EPINEPHrine 1 MG IRR (13:06)
[2021-02-19] MEDS: TRIAMCINOLONE 50 MG/5 ML VIAL INJ (13:06)
[2021-02-19] MEDS: TETRACAINE 0.5% OPHTH DROPS 4 ML 2 DROPS EYE-OP (13:07)
[2021-02-19] MEDS: CHONDROIDTIN/SOD HYALURONATE 1.05 ML SYRINGE INTRAOCULA (13:07)
[2021-02-19 13:17] VITALS: BP 139/92; PULSE 75; RESP 14; TEMP 36.8; O2SAT 98
== END 2021-02-19 13:28 | disposition home or self-care (01) ==
PROVIDERS: PCP Physician Assistant; Referring Provider Ophthalmology; Visit Provider Ophthalmology
PROC: (CPT 66984; principal; 2021-02-19 13:45)
DX: H25.12 Age-related nuclear cataract, left eye (principal)
CPT/HCPCS: 66984; J0171; J2250; J3301

== ENCOUNTER → 2021-09-16 07:18 | Outpatient (CLI) | payer OTHER, MEDICARE, SELFPAY ==
[2019-11-09 15:24] VITALS: BMI 23.2
--- NOTE | 2021-09-16 | DI.MG.S_ITS ---
BILATERAL DIGITAL SCREENING MAMMOGRAM 3D/2D WITH CAD: 09/16/2021 CLINICAL: Routine screening. Comparison is made to exams dated: 05/24/2018 mammogram, 08/29/2016 mammogram, and 01/02/2015 mammogram - outside. The tissue of both breasts is heterogeneously dense. This may lower the sensitivity of mammography. Current study was also evaluated with a Computer Aided Detection (CAD) system. There are grouped linear fine calcifications in the left breast at 1 o'clock posterior depth. There also is an oval low density focal asymmetry with an indistinct and circumscribed margin in the left breast central to the nipple posterior depth. No other significant masses, calcifications, or other findings are seen in either breast. IMPRESSION: INCOMPLETE: NEEDS ADDITIONAL IMAGING EVALUATION The grouped linear fine calcifications in the left breast at 1 o'clock posterior depth are indeterminate. Mediolateral, spot magnification, and additional views are recommended. The oval low density focal asymmetry in the left breast central to the nipple posterior depth is indeterminate. Mediolateral and spot compression views as well as additional views with possible ultrasound are recommended. This exam was interpreted at Station ID: [id number]. NOTE: For mammograms, a report in lay terms will be sent to the patient. Approximately 15% of breast malignancies will not be visualized mammographically. In the management of a palpable breast mass, a negative mammogram must not discourage biopsy of a clinically suspicious lesion. Electronically Signed By: Rogelio smith/shama:09/16/2021 08:15:41 copy to: SHELL JAIMES letter sent: Additional Imaging Needed ACR BI-RADS Category 0: Incomplete 3340F
== END ==
PROVIDERS: PCP Physician Assistant; Referring Provider Physician Assistant; Visit Provider Physician Assistant
DX: Z12.31 Encounter for screening mammogram for malignant neoplasm of breast (principal)
CPT/HCPCS: 77063; 77067

== ENCOUNTER → 2021-09-26 09:32 | Outpatient (CLI) | payer OTHER, MEDICARE, SELFPAY ==
[2019-11-09 15:24] VITALS: BMI 23.2
--- NOTE | 2021-09-26 09:35 | DI.RAD.S_ITS ---
PROCEDURE: XR CHEST 2V INDICATIONS: Chronic cough TECHNIQUE: 2 views of the chest were acquired. COMPARISON: None. FINDINGS: Surgical changes and devices: None. Lungs and pleura: Lungs are clear. No pleural effusions or pneumothorax. Mediastinum: Mediastinal contours are normal. Heart size is normal. Bones and chest wall: No suspicious bony abnormalities. Soft tissues appear unremarkable. IMPRESSION: No acute pulmonary process. Dictated by: Shanelle Abdullahi M.D. on 09/26/2021 at 14:18 Approved by: Shanelle Abdullahi M.D. on 09/26/2021 at 14:19
== END ==
PROVIDERS: PCP Family Medicine; Referring Provider Family Medicine; Visit Provider Family Medicine
DX: R05.3 Chronic cough (principal)
CPT/HCPCS: 71046

== ENCOUNTER → 2021-10-14 13:27 | Outpatient (CLI) | payer OTHER, MEDICARE, SELFPAY ==
[2019-11-09 15:24] VITALS: BMI 23.2
--- NOTE | 2021-10-14 13:29 | DI.MG.S_ITS ---
UNILATERAL LEFT DIGITAL DIAGNOSTIC MAMMOGRAM 3D/2D WITH ADDITIONAL VIEWS: 10/14/2021 CLINICAL: Additional evaluation requested from prior study. Comparison is made to exams dated: 09/16/2021 mammogram - [facility], 05/24/2018 mammogram, and 08/29/2016 mammogram - outside. The tissue of left breast is heterogeneously dense. This may lower the sensitivity of mammography. There is an oval low density focal asymmetry with an indistinct and circumscribed margin in the left breast at 4 o'clock posterior depth. There also are regional fine punctate calcifications in the left breast at 1 o'clock posterior depth. No other significant masses or calcifications are seen in the breast. IMPRESSION: INCOMPLETE: NEEDS ADDITIONAL IMAGING EVALUATION The oval low density focal asymmetry in the left breast at 4 o'clock posterior depth is indeterminate. An ultrasound is recommended. The regional fine punctate calcifications in the left breast at 1 o'clock posterior depth are probably benign. A follow-up mammogram in 6 months is recommended. Ultrasound will be performed immediately following the current exam. This exam was interpreted at Station ID: [id number]. NOTE: For mammograms, a report in lay terms will be sent to the patient. Approximately 15% of breast malignancies will not be visualized mammographically. In the management of a palpable breast mass, a negative mammogram must not discourage biopsy of a clinically suspicious lesion. Electronically Signed By: Rogelio Sotelo M.D. ddparesh/:10/14/2021 13:59:29 copy to: SHELL JAIMES ACR BI-RADS Category 0: Incomplete 3340F
--- NOTE | 2021-10-14 13:29 | DI.US.S_ITS ---
LIMITED ULTRASOUND OF LEFT BREAST: 10/14/2021 CLINICAL: Patient returns today to evaluate an asymmetry in the left breast. Comparison is made to exams dated: 10/14/2021 mammogram, 09/16/2021 mammogram - [facility], 05/24/2018 mammogram, 08/29/2016 mammogram, and 01/02/2015 mammogram - outside. Color flow and real-time ultrasound of the left breast 4-5 o'clock region were performed on the areas of interest. There is a 0.5 cm x 0.4 cm x 0.4 cm oval cyst in the left breast at 4 o'clock posterior depth 5 cm from the nipple. This oval cyst is hypoechoic with internal echoes and posterior acoustic enhancement. This correlates with mammography findings. Color flow imaging demonstrates that there is no vascularity present. There is an adjacent small hypoechoic focus measuring 0.3 x 0.3 x 0.2 cm suggestive of another complicated cyst. There also is a 0.4 cm x 0.4 cm x 0.4 cm oval cyst in the left breast at 5 o'clock posterior depth 7 cm from the nipple. This oval cyst is hypoechoic with internal echoes and posterior acoustic enhancement. Color flow imaging demonstrates that there is no vascularity present. Additionally, there is a 0.4 cm x 0.3 cm x 0.3 cm oval cyst in the left breast at 5 o'clock middle depth 5 cm from the nipple. This oval cyst is hypoechoic with a well-defined boundary, internal echoes, and posterior acoustic enhancement. Color flow imaging demonstrates that there is no vascularity present. IMPRESSION: PROBABLY BENIGN The 0.5 cm x 0.4 cm x 0.4 cm oval cyst in the left breast at 4 o'clock posterior depth is consistent with a complicated cyst and is probably benign. Follow-up mammogram and ultrasound in 6 months is recommended. The 0.4 cm x 0.4 cm x 0.4 cm oval cyst in the left breast at 5 o'clock posterior depth is consistent with a complicated cyst and is probably benign. A follow-up ultrasound in 6 months is recommended. The 0.4 cm x 0.3 cm x 0.3 cm oval cyst in the left breast at 5 o'clock middle depth is consistent with a complicated cyst and is probably benign. A follow-up ultrasound in 6 months is recommended. A follow-up mammogram and an ultrasound in 6 months is recommended to demonstrate stability. Future imaging is recommended as follows: 04/15/2022 mammogram. This exam was interpreted at Station ID: [id number]. Electronically Signed By: Rogelio Sotelo M.D. ddparesh/:10/14/2021 15:06:33 copy to: SHELL JAIMES letter sent: Followup Recommended Ultrasound BI-RADS: 3 Probably benign
== END ==
PROVIDERS: PCP Family Medicine; Referring Provider Family Medicine; Visit Provider Family Medicine
DX: R92.8 Other abnormal and inconclusive findings on diagnostic imaging of breast (principal); R92.1 Mammographic calcification found on diagnostic imaging of breast; N60.02 Solitary cyst of left breast
CPT/HCPCS: 76642; 77065; G0279

== ENCOUNTER → 2022-05-01 09:27 | Outpatient (CLI) | payer OTHER, MEDICARE, SELFPAY ==
[2019-11-09 15:24] VITALS: BMI 23.2
--- NOTE | 2022-05-01 09:29 | DI.US.S_ITS ---
LIMITED ULTRASOUND OF LEFT BREAST AND AXILLA: 05/01/2022 CLINICAL: Patient returns today to evaluate an asymmetry in the left breast. 6 month follow-up of cysts. 2 new areas to evaluate from mammo today. No prior exams were available for comparison. Color flow and real-time ultrasound of the left breast 1-2 o'clock, 4-5 o'clock, and axilla regions were performed. Real-time ultrasonography of left breast was performed with computer guidance to assure complete coverage of the breast tissue and to provide a uniform data set. Images were transferred to a viewing station for 3-D rendering. There is a 0.5 cm x 0.4 cm x 0.4 cm mass in the left breast at 5 o'clock posterior depth 5 cm from the nipple. There also is a 0.4 cm x 0.4 cm x 0.4 cm mass in the left breast at 5 o'clock posterior depth 7 cm from the nipple. Additionally, there is a 0.4 cm x 0.3 cm x 0.3 cm mass in the left breast at 5 o'clock middle depth 5 cm from the nipple. Calcifications seen on mammography are present within the wall of a simple cyst at the 2 o'clock position, benign. IMPRESSION: BENIGN There is no sonographic evidence of malignancy. A 1 year screening mammogram is recommended. This exam was interpreted at Station ID: [id number]. Electronically Signed By: Chandrakant Rivas M.D. jr/:05/01/2022 11:31:33 copy to: SHELL JAIMES letter sent: Normal Exam Ultrasound BI-RADS: 2 Benign
--- NOTE | 2022-05-01 09:29 | DI.MG.S_ITS ---
UNILATERAL LEFT DIGITAL DIAGNOSTIC MAMMOGRAM 3D/2D: 05/01/2022 CLINICAL: Short term follow up for the left breast. Comparison is made to exams dated: 10/14/2021 ultrasound, 10/14/2021 mammogram, and 09/16/2021 mammogram - [facility]. The tissue of left breast is heterogeneously dense. This may lower the sensitivity of mammography. There is a stable benign 0.5 cm x 0.4 cm x 0.4 cm cyst in the left breast at 5 o'clock posterior depth 5 cm from the nipple. There also is a stable benign 0.4 cm x 0.4 cm x 0.4 cm cyst in the left breast at 6 o'clock posterior depth 7 cm from the nipple. Additionally, there is a stable benign 0.4 cm x 0.3 cm x 0.3 cm cyst in the left breast at 6 o'clock middle depth 5 cm from the nipple. In addition, there is a stable calcification in the left breast at 2 o'clock posterior depth. No other significant masses or calcifications are seen in the breast. IMPRESSION: INCOMPLETE: NEEDS ADDITIONAL IMAGING EVALUATION Calcifications and multiple asymmetries representing cysts are all unchanged. Ultrasound waspreviously recommended and will be performed now. Based on the Tyrer Cuzick model (a risk assessment model) the patient's lifetime risk is 5.8% and her 10 year risk is 3.2%. According to the ACR, ACS, and NCCN guidelines, an annual breast MRI exam along with mammogram is recommended if the patient's lifetime risk is 20% or greater. This exam was interpreted at Station ID: [id number]. NOTE: For mammograms, a report in lay terms will be sent to the patient. Approximately 15% of breast malignancies will not be visualized mammographically. In the management of a palpable breast mass, a negative mammogram must not discourage biopsy of a clinically suspicious lesion. Electronically Signed By: Chandrakant Rivas M.D. jr/:05/01/2022 11:30:37 copy to: SHELL JAIMES ACR BI-RADS Category 0: Incomplete 3340F
== END ==
PROVIDERS: PCP Family Medicine; Referring Provider Family Medicine; Visit Provider Family Medicine
DX: R92.8 Other abnormal and inconclusive findings on diagnostic imaging of breast (principal); R92.1 Mammographic calcification found on diagnostic imaging of breast; N63.23 Unspecified lump in the left breast, lower outer quadrant
CPT/HCPCS: 76642; 77065; G0279

== ENCOUNTER → 2023-05-05 08:24 | Outpatient (CLI) | payer OTHER, MEDICARE, SELFPAY ==
[2019-11-09 15:24] VITALS: BMI 23.2
--- NOTE | 2023-05-05 | DI.MG.S_ITS ---
BILATERAL DIGITAL SCREENING MAMMOGRAM 3D/2D WITH CAD: 05/05/2023 CLINICAL: Routine screening. Comparison is made to exams dated: 09/16/2021 mammogram - [facility], 05/24/2018 mammogram, and 08/29/2016 mammogram - outside. Both breasts are heterogeneously dense, which may obscure small masses (category c / 51-75% glandular tissue). Current study was also evaluated with a Computer Aided Detection (CAD) system. No significant masses, calcifications, or other findings are seen in either breast. There has been no significant interval change. IMPRESSION: NEGATIVE There is no mammographic evidence of malignancy. A 1 year screening mammogram is recommended. Based on the Tyrer Cuzick model (a risk assessment model) the patient's lifetime risk is 5.5% and her 10 year risk is 3.3%. According to the ACR, ACS, and NCCN guidelines, an annual breast MRI exam along with mammogram is recommended if the patient's lifetime risk is 20% or greater. This exam was interpreted at Station ID: [id number]. NOTE: For mammograms, a report in lay terms will be sent to the patient. Approximately 15% of breast malignancies will not be visualized mammographically. In the management of a palpable breast mass, a negative mammogram must not discourage biopsy of a clinically suspicious lesion. Electronically Signed By: Carmen sy/shama:05/05/2023 12:33:29 letter sent: Normal Exam ACR BI-RADS Category 1: Negative 3341F
== END ==
PROVIDERS: PCP Family Medicine; Referring Provider Family Medicine; Visit Provider Family Medicine
DX: Z12.31 Encounter for screening mammogram for malignant neoplasm of breast (principal)
CPT/HCPCS: 77063; 77067

== ENCOUNTER → 2023-10-29 09:19 | Outpatient (CLI) | payer OTHER, MEDICARE, SELFPAY ==
[2019-11-09 15:24] VITALS: BMI 23.2
--- NOTE | 2023-10-29 09:21 | DI.CT.S_ITS ---
PROCEDURE: CT CHEST WO CON INDICATIONS: CHRONIC COUGH TECHNIQUE: Noncontrast 5 mm thick sections acquired from the pulmonary apices to the posterior costophrenic angles. 1 mm lung window, 5 mm thick coronal and sagittal and 7 mm axial MIP reformats were then acquired. For radiation dose reduction, the following was used: automated exposure control, adjustment of mA and/or kV according to patient size. COMPARISON: None. FINDINGS: Image quality: Diagnostic. Lower Neck: No enlarged lymph nodes. Thyroid: Small bilateral thyroid nodules. Nodules are poorly defined. Right thyroid calcification. Axillae: No enlarged lymph nodes. Chest Wall: Unremarkable. Bones: No suspicious osseous lesion. Lungs and Pleura: No pneumothorax or pleural effusions. A few small pulmonary nodules. For example: Right lower lobe 0.5 cm, (3/122). Right lower lobe 0.3 cm, (3/137). Right lower lobe calcified granuloma. No acute airspace opacity. Central airways are clear. Heart: Heart size is normal. Mild LAD coronary artery calcifications. No pericardial effusion. Thoracic Vessels: The aorta and pulmonary arteries demonstrate normal size. Mediastinum and [place]: No enlarged lymph nodes. Esophagus: No wall thickening. No hiatal hernia. Upper Abdomen: Hypodensity at the dome of the liver measuring 1.3 cm, (2/37). Possibly a hemangioma or cyst. Bilateral low-density renal cysts. Colonic diverticuli. Low-density left adrenal nodule measuring 0.9 cm. This measures approximately 15 Hounsfield units. IMPRESSION: 1. No acute airspace opacity. No pleural effusion. 2. Right lower lobe pulmonary nodule measuring 0.5 cm. Follow-up CT chest in 6-12 months could be considered if patient is high risk. 3. Hypodensity at the dome of the liver measuring 1.3 cm. Most likely a hemangioma or cyst. Ultrasound or contrast enhanced CT could be considered for further evaluation. 4. Subcentimeter left adrenal nodule. Statistically this most likely represents a benign adenoma but is indeterminate. If clinically indicated this could be further evaluated with adrenal MRI. 5. Small thyroid nodules. These are not well defined. Thyroid ultrasound could be considered for further evaluation. Dictated by: Yair Yeung M.D. on 10/29/2023 at 10:23 Approved by: Yair Yeung M.D. on 10/29/2023 at 10:37
== END ==
PROVIDERS: PCP Family Medicine; Referring Provider Family Medicine; Visit Provider Family Medicine
DX: E27.9 Disorder of adrenal gland, unspecified (principal); E04.2 Nontoxic multinodular goiter; R91.1 Solitary pulmonary nodule; R05.3 Chronic cough
CPT/HCPCS: 71250

== ENCOUNTER → 2023-12-02 08:18 | Outpatient (CLI) | payer OTHER, MEDICARE, SELFPAY ==
[2019-11-09 15:24] VITALS: BMI 23.2
--- NOTE | 2023-12-02 08:20 | DI.US.S_ITS ---
PROCEDURE: US ABDOMEN LIMITED INDICATIONS: FOLLOW UP CT LIVER LESION TECHNIQUE: Real-time scanning was performed of the abdominal and retroperitoneal organs, with image documentation. COMPARISON: [facility], CT, CT CHEST WO CON, 10/29/2023, 9:29. FINDINGS: Liver: Liver is normal in size and homogeneous in echotexture. The lesion visualized on comparison CT dated October 29, 2023 is not visualized on the current ultrasound. Gallbladder: Surgically absent. Biliary ducts: Intrahepatic bile ducts are non-dilated. Extrahepatic bile duct caliber measures 5.3 mm. Normal is 6-7 mm or less in diameter, or 10 mm or less post-cholecystectomy. Pancreas: Visualized portions of the pancreas are sonographically normal. Miscellaneous: No free abdominal fluid. There is a 5.0 x 6.2 x 6.2 cm exophytic right renal cyst. IMPRESSION: 1. Hypodense lesion visualized on the comparison CT dated October 29, 2023 is not visualized by ultrasound. If further characterization is warranted, hepatic mass protocol CT or MRI could be used. Dictated by: Carmen Matthew M.D. on 12/02/2023 at 11:02 Approved by: Carmen Matthew M.D. on 12/02/2023 at 11:12
--- NOTE | 2023-12-02 08:21 | DI.US.S_ITS ---
PROCEDURE: US THYROID INDICATIONS: FOLLOW UP CT - THYROID NODULES TECHNIQUE: Real-time scanning was performed of the thyroid gland, with image documentation. COMPARISON: None. FINDINGS: Right: Thyroid lobe measures 5.9 x 2.4 x 2.1 cm, and is homogeneous in echotexture. Left: Thyroid lobe measures 5.0 x 1.8 x 1.9 cm, and is homogenous in echotexture. Isthmus: 0.2 cm thick. Nodule number: 1 Location: Right superior Size: 2.0 x 1.6 x 1.1 cm. Composition: Solid Echogenicity: Isoechoic Shape: wider than tall. Margins: Smooth Echogenic foci: None Total points: 3 ACR TI-RADS category: 3 Nodule number: 2 Location: Right mid Size: 3.6 x 2.2 x 1.7 cm. Composition: Solid Echogenicity: Hypoechoic Shape: Wider than tall. Margins: Move Echogenic foci: Macro calcifications Total points: 5 ACR TI-RADS category: For Nodule number: 3 Location: Left superior Size: 1.9 x 1.6 x 1.1 cm. Composition: Solid Echogenicity: Isoechoic Shape: wider than tall. Margins: Smooth Echogenic foci: None Total points: 3 ACR TI-RADS category: 3 Nodule number: 4 Location: Left mid Size: 1.3 x 1.2 x 1.1 cm. Composition: Solid Echogenicity: Hypoechoic Shape: wider than tall. Margins: Smooth Echogenic foci: None Total points: 4 ACR TI-RADS category: 4 IMPRESSION: 1. Right superior T3 lesion. Follow-up at 1, 3, and 5 years. 2. Right mid T4 lesion greater than 1.5 cm in diameter. FNA recommended. 3. Left superior T3 lesion greater than 1.5 cm in diameter. Follow-up at 1, 3, and 5 years recommended. 4. Left mid T4 lesion less than 1.5 cm in diameter. Follow-up at 1, 2, 3, and 5 years recommended. ACR TI-RADS definitions and recommendations: TI-RADS 1 (benign): 0 points. FNA not needed. TI-RADS 2 (not suspicious): 2 points. FNA not needed. TI-RADS 3 (mildly suspicious): 3 points. * FNA if 2.5 cm or larger, follow up if 1.5 cm or larger (at 1, 3, and 5 years). TI-RADS 4 (moderately suspicious): 4-6 points. * FNA if 1.5 cm or larger, follow up if 1 cm or larger (at 1, 2, 3, and 5 years). TI-RADS 5 (highly suspicious): 7 points or more. * FNA if 1 cm or larger, follow up if 0.5 cm or larger (every year for 5 years). Dictated by: Carmen Matthew M.D. on 12/02/2023 at 11:13 Approved by: Carmen Matthew M.D. on 12/02/2023 at 11:18
== END ==
LOC: US 08:19
PROVIDERS: PCP Family Medicine; Referring Provider Family Medicine; Visit Provider Family Medicine
DX: K76.89 Other specified diseases of liver (principal); E04.2 Nontoxic multinodular goiter; Z90.49 Acquired absence of other specified parts of digestive tract
CPT/HCPCS: 76536; 76705

== ENCOUNTER → 2024-01-12 13:34 | Outpatient (CLI) | payer OTHER, MEDICARE, SELFPAY ==
[2019-11-09 15:24] VITALS: BMI 23.2
--- NOTE | 2024-01-12 | PATH_ITS ---
Note [facility] Accession Number: [id number] TESTS RESULT FLAG UNITS REF RANGE LAB Clinician Provided Cytology Information No. of containers..01 Other (Miscellaneous) No. of containers..02 Previously Prepared Cytology Slide Source: RIGHT THYROID MID NODULE #2 DIAGNOSIS: 01 RIGHT THYROID MID NODULE #2, FINE NEEDLE ASPIRATION. NEGATIVE FOR MALIGNANT CELLS. ADEQUATE FOR EVALUATION. FOLLICULAR GROUPS ARE PRESENT. BENIGN FOLLICULAR (GOITEROUS) NODULE (BETHESDA CATEGORY II), SEE COMMENT. COMMENT: MICROSCOPIC EXAMINATION REVEALS A MILDLY CELLULAR ASPIRATE, COMPOSED OF COLLOID, FOLLICULAR GROUPS WITHOUT SIGNIFICANT CYTOLOGIC OR ARCHITECTURAL ATYPIA, AND BACKGROUND MACROPHAGES. THESE FINDINGS SUPPORT A BENIGN FOLLICULAR (GOITEROUS) NODULE. CORRELATION WITH CLINICAL AND RADIOGRAPHIC FINDINGS IS RECOMMENDED. ACCORDING TO THE BETHESDA REPORTING SYSTEM FOR THYROID CYTOPATHOLOGY, THE RISK OF MALIGNANCY IN THE CATEGORY BENIGN-CATEGORY II IS 0-3%; THEREFORE RECOMMEND CONTINUED ULTRASOUND SURVEILLANCE WITH REPEAT FNA IF THE NODULE SIGNIFICANTLY INCREASES IN SIZE. Pathologist ICD10: 01 E04.1, E04.2 Signed out by: Adolfo Gallardo MD, Pathologist NPI- [id number] Performed by: Gunner Maxwell, Cardiovascular Radiologic Technologist ([facility]) Gross description: 01 30 CC, PINK, CLEAR RECIEVED: IN CYTOLYT WITH 6 ALCOHOL FIXED AND 6 QUICK STAINED SLIDES ALSO 1 RNA VIAL WILL ON 07-31-2025.VO /VDU 01/13/2024 0809 Local FLAG LEGEND: L-Low Normal,H-High Normal,LL-Alert Low,HH-Alert High <-Panic Low,>-Panic High,A-Abnormal,AA-Critical Abnormal Performed at: 01 =[facility] [address] [place] [address] [address], [place] [address] Rogelio Ferreira MD, Performed at: 01 [facility] [address] [place] [address] [address], [place], [place] [id number] MD Rogelio Ferreira MD Phone: [phone]
--- NOTE | 2024-01-12 13:36 | DI.US.S_ITS ---
PROCEDURE: US FINE NEEDLE ASPIRATION INDICATIONS: RIGHT MID THYROID NODULE ASPIRATION TECHNIQUE: The indications, alternatives, benefits, risks, and complications of the procedure were explained to the patient. Written informed consent was obtained and placed in the chart. The area of interest was examined sonographically and a site was chosen for ultrasound guided percutaneous sampling. The skin was prepared and draped in the usual fashion, and anesthetized with 1% lidocaine infiltrated from the skin down to the lesion. Multiple passes were then performed, with contents emptied into an appropriate pathology specimen container. A bandage was applied to the area of access at completion of the study. COMPARISON: None. FINDINGS: Location(s) of lesion(s) sampled: Right thyroid, nodule # 2 of prior ultrasound [place]: 25 gauge hypodermic needles. Number of passes: 6 Medications: 1% lidocaine for local anaesthesia. Complications: None. IMPRESSION: Successful ultrasound-guided right thyroid, nodule # 2 fine needle aspiration, with cytology results pending. Dictated by: Anton Resendiz M.D. on 01/12/2024 at 16:38 Approved by: Anton Resendiz M.D. on 01/12/2024 at 16:40
== END ==
LOC: US 13:35
PROVIDERS: PCP Family Medicine; Referring Provider Family Medicine; Visit Provider Family Medicine
DX: E04.1 Nontoxic single thyroid nodule (principal)
CPT/HCPCS: 10005